=== PATIENT | male | born 1950 | race Caucasian/White ===

== ENCOUNTER 2017-07-15 11:02 | Emergency (ER) | payer MEDICARE, BC ==
[~2017-07-15] VITALS: Ht 180.3 cm; Wt 94.3 kg
[2017-07-15] MEDS ORDERED: AMLODIPINE BESYLATE 5 MG TABS (11:20)
[2017-07-15] MEDS ORDERED: TAMSULOSIN HCL .4 MG CAPS (11:20)
[2017-07-15] MEDS ORDERED: ATORVASTATIN CALCIUM 20 MG TAB (11:20)
[2017-07-15] MEDS ORDERED: DULOXETINE HCL 60 MG (11:20)
[2017-07-15] MEDS ORDERED: BENAZEPRIL HCL 10 MG (11:20)
--- NOTE | 2017-07-15 12:05 | NUR ---
PATIENT WAS SEEN BY MD. MORRIS PENA. DC AND FOLLOW UP INSTRUCTIONS GIVEN AND EXPLAINED TO PATIENT WHO STATES HE UNDERSTANDS ALL INSTRUCTIONS.
== END 2017-07-15 12:07 | disposition home or self-care (01) ==
LOC: ER 11:02
DX: S90.32XA Contusion of left foot, initial encounter (principal); X58.XXXA Exposure to other specified factors, initial encounter; Y93.89 Activity, other specified; Y92.9 Unspecified place or not applicable; Y99.9 Unspecified external cause status
CPT/HCPCS: 73630; A4663